=== PATIENT | male | born 1980 | race Caucasian/White ===

== ENCOUNTER 2016-10-10 16:55 | Emergency (ER) | payer SELFPAY ==
[~2016-10-10] VITALS: Ht 157.5 cm; Wt 44.7 kg
[~2016-10-10 16:55] MED LIST: AUGM875T PO; PERC5TAB12 PO
[2016-10-10 16:56] VITALS: BP 134/103; PULSE 87; RESP 20; TEMP 98.8; O2SAT 92
[2016-10-10] MEDS ORDERED: LOPE2TAB3 PO (17:19)
[2016-10-10] MEDS ORDERED: ZOFR4TAB3 SL (17:19)
--- NOTE | 2016-10-10 17:19 | PD ---
HPI Chief Complaint: GI Complaint Time Seen by Provider: 17:02 Travel History International Travel<30 days: No Contact w/Intl Traveler<30days: No Traveled to known affect area: No History of Present Illness HPI Is a 36-year-old man who presents emergency Department with 7 days of URI symptoms associated with nausea vomiting and opiates watery diarrhea. Family member at home just started getting sick with similar symptoms. States she's been off and on in severity but is still having some vomiting, as well as some loose stools. Still coughing. States when he coughs he gets pain on the right side of his chest. He also has epigastric pain. [place] a pop in his shoulder last night and isn't sure he injured it or not. He otherwise has been feeling generally well and healthy prior to the onset of the symptoms. No other complaints. History Past Medical History Medical History: Denies Significant Hx Social History Alcohol Use: Yes (SOME DAYS) Tobacco Use: Yes (5 CIGS PER DAY) Allergies-Medications (Allergen,Severity, Reaction): Coded Allergies: Septra (Verified Allergy, Severe, HIVES, 10/10/16) Reported Meds & Prescriptions Reported Meds & Active Scripts Active Percocet 5-325 mg (Oxycodone/Acetaminophen) Oxycodone 5/325 Acetaminophen Tab 1 Tab PO Q4H PRN Augmentin 875 mg Tab (Amoxicillin & Pot Clavulanate 875 mg Tab) 875 Mg Tab 875 Mg PO Q12 7 Days Review of Systems Except as stated in HPI: all other systems reviewed are Neg Physical Exam Narrative GENERAL: 36 year-old man, no acute distress. SKIN: Warm and dry. NECK: Trachea midline. No JVD. CARDIOVASCULAR: Regular rate and rhythm. No murmur appreciated. RESPIRATORY: No accessory muscle use. Clear to auscultation. Breath sounds equal bilaterally. GASTROINTESTINAL: Abdomen soft, non-tender, nondistended. Hepatic and splenic margins not palpable. MUSCULOSKELETAL: No obvious deformities. No Edema. NEUROLOGICAL: Awake and alert. No obvious cranial nerve deficits. Motor grossly within normal limits. Normal speech. Data Data Last Documented VS Vital Signs Date Time Temp Pulse Resp B/P Pulse Ox O2 Delivery O2 Flow Rate FiO2 10/10/16 16:56 98.8 87 20 134/103 92 MDM Medical Decision Making Medical Screen Exam Complete: Yes Emergency Medical Condition: Yes Differential Diagnosis Gastroenteritis, gastritis, pneumonia, viral syndrome, appendicitis, other Narrative Course Medical decision making Well 36-year-old male with nausea vomiting diarrhea cough cold symptoms ongoing for some time. Symptoms last longer than we to see for normal viral syndrome. Nonetheless patient looks completely well. His a benign abdominal exam. No concerning symptoms. Recommend continue supportive treatment. Diagnosis Primary Impression: Nausea vomiting and diarrhea Patient Instructions: General Instructions Additional Instructions: Zofran as needed for nausea or vomiting. Take loperamide as needed for diarrhea. Follow-up with your primary doctor in 3-5 days every not feeling improved. Return to the emergency department for any worsening abdominal pain, high fevers , or any other new or worsening symptoms. Med/Other Pt SpecificInfo: Prescription(s) given Scripts Loperamide 2 Mg Tab2 Mg PO DIRECTED PRN (DIARRHEA) #8 TAB One tablet after each loose stool. Not to exceed 8 tablets per day. Prov:Tad Worthington MD 10/10/16 Ondansetron Odt (Zofran Odt)4 Mg Tab4 Mg SL Q8HR PRN (Nausea/Vomiting) #15 TAB May substitute non-ODT form. Prov:Tad Worthington MD 10/10/16 Disposition: 01 DISCHARGE HOME Condition: Stable Tad Worthington MD Oct 10, 2016 17:19
== END 2016-10-10 17:31 | disposition home or self-care (01) ==
LOC: PHED 16:55
DX: R11.2 Nausea with vomiting, unspecified (principal); R19.7 Diarrhea, unspecified; Z72.0 Tobacco use
CPT/HCPCS: 99283

== ENCOUNTER 2016-10-15 17:09 | Emergency (ER) | payer SELFPAY ==
[~2016-10-15] VITALS: Ht 157.5 cm; Wt 45.9 kg
[~2016-10-15 17:09] MED LIST changes: +LOPE2TAB3 PO; +ZOFR4TAB3 SL
[2016-10-15 17:12] VITALS: BP 132/103; PULSE 88; RESP 16; TEMP 98.1; O2SAT 97
--- NOTE | 2016-10-15 17:25 | PD ---
HPI . fall from a chair Chief Complaint: Fall Time Seen by Provider: 17:24 Travel History International Travel<30 days: No Contact w/Intl Traveler<30days: No Traveled to known affect area: No History of Present Illness HPI 36-year-old male with no significant past history here with complaints of falling out of his chair. Patient fell out of his chair and now thinks he broke his nose. He does not recall any of the events. He does not recall losing consciousness. He is here just check to see if he has fractured his nose. He denies any headaches or other symptoms. He is a poor historian. 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24,CAUSING H/A.) Immunizations Current: No Past Surgical History Tonsillectomy: Yes (AND ADNOIDS) Tympanostomy Tube: Yes (BOTH EARS) Social History Alcohol Use: Yes (SOME DAYS) Tobacco Use: Yes (5 CIGS PER DAY) Substance Use: No Allergies-Medications (Allergen,Severity, Reaction): Coded Allergies: Septra (Verified Allergy, Severe, HIVES, 10/15/16) Reported Meds & Prescriptions Reported Meds & Active Scripts Active No Active Prescriptions or Reported Medications Review of Systems General / Constitutional: No: Fever Eyes: No: Visual changes HENT: No: Headaches Cardiovascular: No: Chest Pain or Discomfort Respiratory: No: Shortness of Breath Gastrointestinal: No: Abdominal Pain Genitourinary: No: Dysuria Musculoskeletal: No: Pain Skin: No Rash Neurologic: No: Weakness Psychiatric: No: Depression Endocrine: No: Polydipsia Hematologic/Lymphatic: No: Easy Bruising Physical Exam Narrative GENERAL: AAO x 3, no acute distress, Well-nourished, well-developed patient. Reeks of alcohol SKIN: Warm and dry. No visible rashes or bruising. abrasion to nasal bridge, + deformity of nasal bone, no ecchymosis of orbits. HEAD: Normocephalic and atraumatic. EYES: No scleral icterus. No injection or drainage. EOM intact, PERRLA ENT: No nasal drainage noted. Mucous membranes pink. Airway patent. NECK: Supple, trachea midline. No JVD. Neck full ROM, no C spine tenderness CARDIOVASCULAR: Regular rate and rhythm without murmurs, gallops, or rubs. RESPIRATORY: Breath sounds equal bilaterally. No accessory muscle use. No rhonchi or rales. GASTROINTESTINAL: Abdomen soft, non-tender, nondistended. EXTREMITIES: No cyanosis or edema. BACK: Nontender without obvious deformity. No CVA tenderness. PSYCH: AAO x 3, normal affect. Data Data Last Documented VS Vital Signs Date Time Temp Pulse Resp B/P Pulse Ox O2 Delivery O2 Flow Rate FiO2 10/15/16 17:12 98.1 88 16 132/[address] Facial Bones W/O Iv Cont (10/15/16 17:31) Alcohol (Ethanol) (10/15/16 17:31) Labs Laboratory Tests Test 10/15/16 17:40 Ethyl Alcohol Level 324 MG/DL [facility] Medical Decision Making Medical Screen Exam Complete: Yes Emergency Medical Condition: Yes Medical Record Reviewed: Yes Differential Diagnosis nasal bone fracture, less likely orbital fracture, acute alcohol intoxication Narrative Course 36-year-old male with no significant past history here with complaints of falling out of his chair. Patient fell out of his chair and now thinks he broke his nose. He does not recall any of the events. He does not recall losing consciousness. He is here just check to see if he has fractured his nose. He denies any headaches or other symptoms. He is a poor historian. Patient seen and examined. He smells of alcohol, but speech and response is appropriate. He appears to have a nasal bone fracture. CT scan confirms this. He can f/u with [facility] as outpatient. His ETOH level is high, but he is functioning normally. He admits to drinking 5 beers today. Advised to f/u with PCP and [facility]. Financial counselor spoke with patient regarding options. Patient verbalized understanding of instructions, questions were answered, and thanked me for their care. I advised them if their condition worsens, please return to the nearest emergency room for further care. Diagnosis Primary Impression: Nasal bone fracture Qualified Code: S02.2XXA - Closed fracture of nasal bone, initial encounter Referrals: Oral Maxillofacial Surgeon Patient Instructions: General Instructions, Nasal Fracture (ED) Additional Instructions: Please return to emergency department if your symptoms return or worsen. Follow up with your primary care provider. You will need to follow with oral maxillofacial surgery. Please make an appointment for further recommendations and care of your nasal bone fracture. Use Tylenol and Motrin as needed for pain. Med/Other Pt SpecificInfo: No Change to Meds Scripts No Active Prescriptions or Reported Meds Disposition: 01 DISCHARGE HOME Condition: Stable Lyudmila Moore Oct 15, 2016 17:25
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
== END 2016-10-15 18:34 | disposition home or self-care (01) ==
LOC: PHEFT 17:09
DX: S02.2XXA Fracture of nasal bones, initial encounter for closed fracture (principal); F17.210 Nicotine dependence, cigarettes, uncomplicated; W07.XXXA Fall from chair, initial encounter; Y93.9 Activity, unspecified; Y92.9 Unspecified place or not applicable; Y99.8 Other external cause status
CPT/HCPCS: 70486; 80307

== ENCOUNTER 2017-08-21 11:28 | Emergency (ER) | payer OTHER ==
[~2017-08-21] VITALS: Ht 157.5 cm; Wt 49.4 kg
[2017-08-21 12:07] VITALS: BP 143/88; PULSE 75; RESP 18; TEMP 98.1; O2SAT 97
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
== END 2017-08-21 14:13 | disposition home or self-care (01) ==
LOC: PHEFT 11:28
DX: S00.83XA Contusion of other part of head, initial encounter (principal); S60.222A Contusion of left hand, initial encounter; S16.1XXA Strain of muscle, fascia and tendon at neck level, initial encounter; S09.90XA Unspecified injury of head, initial encounter; M50.223 Other cervical disc displacement at C6-C7 level; F17.210 Nicotine dependence, cigarettes, uncomplicated; V19.40XA Pedal cycle driver injured in collision with unspecified motor vehicles in traffic accident, initial encounter; Y92.410 Unspecified street and highway as the place of occurrence of the external cause; Y93.55 Activity, bike riding; Z87.442 Personal history of urinary calculi; Z88.2 Allergy status to sulfonamides
CPT/HCPCS: 70450; 70486; 71045; 72125; 72128; 73130; 99284

== ENCOUNTER 2017-08-27 20:47 | Emergency (ER) | payer SELFPAY ==
[~2017-08-27] VITALS: Ht 157.5 cm; Wt 50.0 kg
[2017-08-27 20:54] VITALS: BP 123/79; PULSE 92; RESP 18; TEMP 97.9; O2SAT 95
== END 2017-08-27 22:00 | disposition left against medical advice (07) ==
LOC: NETRI 20:47
DX: F10.129 Alcohol abuse with intoxication, unspecified (principal); Z53.21 Procedure and treatment not carried out due to patient leaving prior to being seen by health care provider
CPT/HCPCS: 99281